=== PATIENT | female | born 1985 | race Two or more races ===

== ENCOUNTER → 2018-09-29 | Outpatient (CLI) | payer BC ==
--- NOTE | 2018-09-29 10:07 | RADIOLOGY REPORT (SQ) ---
EXAM DESCRIPTION: CT SOFT TISSUE NECK WITH COMPLETED DATE/TIME: 09/29/2018 8:25 am REASON FOR STUDY: CERVICAL LYMPHADENOPATHY (R59.0) R59.0 LOCALIZED ENLARGED LYMPH NODES COMPARISON: None. TECHNIQUE: Post IV contrasted scanning from skull base through lung apices with review of bone, soft tissue and lung windows. Reconstructed coronal and sagittal MPR images reviewed. All images stored on PACS. All CT scanners at this facility use dose modulation, iterative reconstruction, and/or weight based d osing when appropriate to reduce radiation dose to as low as reasonably achievable (ALARA). [facility]: Dose Right [facility]: CareDose [facility]: Dose Right [facility]: Teradose 4D [facility]: [employer] CONTRAST TYPE AND DOSE: contrast/concentration: Isovue 350.00 mg/ml; Total Contrast Delivered: 75.0 ml; Total Saline Delivered: 55.0 ml RENAL FUNCTION: None required. The patient is less than 50 years old. RADIATION DOSE: 14 mGy . LIMITATIONS: None. FINDINGS: SKULL BASE: Inferior brain parenchyma unremarkable. MAJOR SALIVARY GLANDS: No solid or cystic masses. No inflammatory changes. LYMPHADENOPATHY: There are multiple left-sided cervical lymph nodes which are normal size as follows: 6 mm short axis level IIa left cervical lymph node axial image 49 6 mm short axis level IIa left cervical lymph node axial image 53 5 mm short axis level 3 left cervical lymph node axial image 57 4 mm short axis left supraclavicular level 4 lymph node axial image 81 There are multiple right-sided cervical lymph nodes normal size as follows: 7.5 mm short axis right jugulodigastric level IIa lymph node axial image 50 There are multiple tiny less than 5 mm short axis level 5 lymph nodes bilaterally. MUCOSAL MASSES OR ASYMMETRY: No mucosal masses or asymmetry. LARYNX/CORDS: No abnormal findings. VASCULAR STRUCTURES: The major vessels are patent. LUNG APICES: Clear. BONES: Intact. THYROID: Normal size. 4 mm probable colloid cyst right lower pole thyroid. 8 mm peripherally calcif ied left lower pole thyroid nodule. 4 mm left midpole probable thyroid colloid cysts. Follow-up thy roid ultrasound recommended PARANASAL SINUSES: Clear. OTHER: No other significant finding. IMPRESSION: Cervical lymph nodes as above Thyroid lesions for which dedicated follow-up thyroid ultrasound is recommended TECHNICAL DOCUMENTATION: JOB ID: [id number] Quality ID # [id number]: Final reports with documentation of one or more dose reduction techniques (e.g., Au tomated exposure control, adjustment of the mA and/or kV according to patient size, use of iterative reconstruction technique) 2010 [employer]- All Rights Reserved Reading location - IP/workstation name: [email or web address]
== END ==
LOC: RAD 07:50
PROVIDERS: ATTEND Otolaryngology
DX: E04.1 Nontoxic single thyroid nodule (principal); R59.0 Localized enlarged lymph nodes
CPT/HCPCS: 70491

== ENCOUNTER → 2018-10-19 | Day surgery (SDC) | payer BC ==
--- NOTE | 2018-10-19 14:24 | RADIOLOGY REPORT (SQ) ---
EXAM DESCRIPTION: U/S BIOPSY THYROID COMPLETED DATE/TIME: 10/19/2018 12:44 pm REASON FOR STUDY: CERVICAL LYMPHADENOPATHY (R59.0) R59.0 LOCALIZED ENLARGED LYMPH NODES E04.1 NONT OXIC SINGLE THYROID NODULE COMPARISON: CT soft tissue neck 09/29/2018 TECHNIQUE: Ultrasound of the neck soft tissues including the left cervical lymph nodes and thyroid g land was performed. A normal appearing left submandibular lymph node was identified. No biopsy of the was performed. Two lesions in the left lower pole thyroid were identified, described in the findings below. The 1st nodule sampled is medial in the left lower lobe with peripheral rim calcification measuring about 8 mm in greatest diameter. 2nd worrisome lesion is in the lower pole left lobe thyroid measuring 1 cm in diameter, without peripheral rim calcification. The procedure was discussed with the patient and written informed consent obtained. A timeout was pe rformed to confirm the procedure and patient's identity. Skin of the neck was prepped and draped in sterile fashion and 0.5 mL of 1% lidocaine administered fo r local anesthesia. Under sonographic guidance, fine needle aspiration biopsy was performed of the peripheral rim calcifi ed nodule in in the medial aspect left lobe thyroid. 5 passes with 19/20 gauge needles, specimens re ceived by the marketing development representative. Under sonographic guidance, fine-needle aspiration biopsy was performed of the 1 cm nodule in the lef t lower pole thyroid. 4 passes with 19/20 gauge needles were made. Specimens received by the cytote chnologist. No immediate postprocedure complications. Pathology is pending. LIMITATIONS: None. FINDINGS: PATHOLOGY: Pending. Right thyroid ultrasound was performed. The right lobe thyroid measures 4.3 x 1 x 0.9 cm in size. In the right lower pole thyroid, a cystic hypoechoic smooth nodule is present, 9 x 5 mm. This is wid er than tall, contains no echogenic foci and is a TI-RADS 2 lesion. No biopsy was performed. The left lobe thyroid measures 4.2 x 1 x 0.9 cm in size. In the left upper pole thyroid, a 4 mm colloid cyst is present of doubtful clinical significance. In the left lower pole thyroid medially, a peripheral rim calcified 0.8 x 0.5 cm nodule is present, s olid hypoechoic with lobular margins and peripheral rim calcification. This is a TI-RADS 5 lesion. This was the first thyroid nodule aspirated today. In the left lower pole thyroid laterally, a 1.4 x 0.7 cm mixed cystic and solid hypoechoic nodule is present wider than tall, with smooth margins and decreased echogenicity. There are scattered echogen ic foci within the nodule, this is a TI-RADS 5 lesion. This was the 2nd thyroid nodule aspirated tod ay. The left submandibular triangle was evaluated with ultrasound. The left submandibular gland is williams l. There is a lymph node in the submandibular triangle measuring 1.8 x 0.4 cm in size. Preserved ce ntral hilar fat. Lymph node cortex measures less than 3 mm in thickness, benign in appearance. This lymph node was not biopsied today. IMPRESSION: ULTRASOUND-GUIDED BIOPSY PERFORMED OF 2 NODULES IN THE LEFT LOWER POLE OF THE THYROID. PATHOLOGY PENDING AT THE TIME OF DICTATION. COMMENT: The [employer] (A[employer]) Thyroid Imaging Reporting And Data System (TI-RADS ) is an ultrasound feature based summed scoring system of risk categorization and management recommen dations for thyroid nodules. TI-RADS assessment categories are as follows: 0 - Incomplete exam: Additional imaging or comparison to prior examinations recommended. 1. - Benign: Fine-needle aspiration or follow-up not routinely recommended in the absence of clinical change. 2. - Not suspicious: Fine-needle aspiration or follow-up not routinely recommended in the absence of clinical change. 3. - Mildly suspicious: Fine-needle aspiration recommended if greater than or equal to 2.5 cm in size . Ultrasound follow-up recommended if greater than or equal to 1.5 cm in size. 4. - Moderately suspicious: Fine-needle aspiration recommended if greater than or equal to 1.5 cm in size. Ultrasound follow-up recommended if greater than or equal to 1.0 cm in size. 5. - Highly suspicious: Fine-needle aspiration recommended if greater than or equal to 1.0 cm in size . Ultrasound follow-up recommended if greater than or equal to 0.5 cm in size. Patient medication list reviewed: Yes- Quality ID# [id number]:Eligible professional attests to documenting i n the medical record they obtained, updated, or reviewed the patient's current medications. TECHNICAL DOCUMENTATION: JOB ID: [id number] [employer]- All Rights Reserved Reading location - IP/workstation name: [email or web address]
== END ==
LOC: RAD 10:30
PROVIDERS: ATTEND Otolaryngology
DX: E04.1 Nontoxic single thyroid nodule (principal); R59.0 Localized enlarged lymph nodes
CPT/HCPCS: 60100; 88173

== ENCOUNTER → 2019-04-10 | Outpatient (CLI) | payer BC ==
--- NOTE | 2019-04-10 11:50 | RADIOLOGY REPORT (SQ) ---
EXAM DESCRIPTION: U/S THYROID/SFT TISS HD NECK COMPLETED DATE/TIME: 04/10/2019 8:16 am REASON FOR STUDY: NONTOXIC MULTINODULAR GOITER E04.2 NONTOXIC MULTINODULAR GOITER COMPARISON: Thyroid biopsy 10/19/2018 CT soft tissue neck 09/29/2018 TECHNIQUE: Dynamic and static carrizales-scale images acquired of the thyroid gland. Selected additional c olor/power Doppler images recorded. All images stored to PACS. LIMITATIONS: None. FINDINGS: RIGHT LOBE: Right lobe thyroid measures 4.8 x 1.2 x 1.2 cm in size. Homogeneous echotextu re. In the right midpole gland, a 4 mm spongiform isoechoic thyroid nodule is present, wider than ta ll with smooth margins and no echogenic foci (TI-RADS 1). This is unchanged from 10/19/2018 In the right lower pole thyroid, a 1.0 x 0.6 cm spongiform isoechoic nodule is present wider than sylvie l with smooth margins and no comet tail artifact (TI-RADS 1). This is unchanged from 10/19/2018 LEFT LOBE: Left lobe thyroid measures 4.3 x 1.8 x 0.9 cm in size. Homogeneous echotexture. In the left upper pole gland, a 0.4 cm spongiform hypoechoic well-circumscribed nodule is present wid er than tall with colloid artifact (TI-RADS 2). This is unchanged from 10/19/2018. In the left lower pole, a peripheral rim calcified nodule is present, previously biopsied 10/19/2018, w ith benign results. This measures 1.0 x 0.6 x 0.5 cm in size, has peripheral rim calcification, comm on difficult to determine its composition wider than tall with smooth margins (TI-RADS 3). This is u nchanged from 10/19/2018. In the left lower pole thyroid, a non calcified mixed cystic and solid hypoechoic mass is present wit h well-circumscribed smooth margins and following artifact. This measures 1.7 x 0.7 x 0.7 cm in size (TI-RADS 2 lesion). This was previously biopsied 10/19/2018 with benign results. This is unchanged f rom 10/19/2018 accounting for differences in technique ISTHMUS: Normal size. Homogeneous echotexture. No cystic or solid masses. OTHER: No other significant finding. IMPRESSION: Multiple thyroid nodules as above. Left lower pole thyroid nodules sampled 10/19/2018 with fine-needle aspirate are stable COMMENT: The [employer] (ACR) Thyroid Imaging Reporting And Data System (TI-RADS ) is an ultrasound feature based summed scoring system of risk categorization and management recommen dations for thyroid nodules. TI-RADS assessment categories are as follows: 0 - Incomplete exam: Additional imaging or comparison to prior examinations recommended. 1. - Benign: Fine-needle aspiration or follow-up not routinely recommended in the absence of clinical change. 2. - Not suspicious: Fine-needle aspiration or follow-up not routinely recommended in the absence of clinical change. 3. - Mildly suspicious: Fine-needle aspiration recommended if greater than or equal to 2.5 cm in size . Ultrasound follow-up recommended if greater than or equal to 1.5 cm in size. 4. - Moderately suspicious: Fine-needle aspiration recommended if greater than or equal to 1.5 cm in size. Ultrasound follow-up recommended if greater than or equal to 1.0 cm in size. 5. - Highly suspicious: Fine-needle aspiration recommended if greater than or equal to 1.0 cm in size . Ultrasound follow-up recommended if greater than or equal to 0.5 cm in size. TECHNICAL DOCUMENTATION: JOB ID: [id number] [employer]- All Rights Reserved Reading location - IP/workstation name: [email or web address]
== END ==
LOC: RAD 07:43
PROVIDERS: ATTEND Otolaryngology
DX: E04.2 Nontoxic multinodular goiter (principal)
CPT/HCPCS: 76536